=== PATIENT | male | born 1975 | race Caucasian/White ===

== ENCOUNTER 2016-06-27 09:39 | Day surgery (SDC) | payer BC, OTHER ==
[2016-06-21 10:27] LABS: HEMATOCRIT 47.2 % (37.9-51.0); HEMOGLOBIN 16.4 g/dL (13.5-17.0); MEAN CORPUSCULAR HEMOGLOBIN 29.2 pg (27.0-33.4); MEAN CORPUSCULAR HGB CONC 34.8 g/dL (32.0-36.0); MEAN CORPUSCULAR VOLUME 84 fl (80-97); RED BLOOD COUNT 5.63 10^6/uL (4.35-5.55); RED CELL DISTRIBUTION WIDTH 13.7 % (11.5-14.0); WHITE BLOOD COUNT 6.9 10^3/uL (4.0-10.5)
[2016-06-21 10:53] LABS: ANION GAP 14 (5-19); BLOOD UREA NITROGEN 22 mg/dL (7-20); CALCIUM 9.6 mg/dL (8.4-10.2); CARBON DIOXIDE 25 mmol/L (22-30); CHLORIDE 101 mmol/L (98-107); CREATININE RESULT 1.34 mg/dL (0.52-1.25); GLUCOSE 86 mg/dL (75-110); POTASSIUM 4.9 mmol/L (3.6-5.0); SODIUM 139.5 mmol/L (137-145)
--- NOTE | 2016-06-21 12:45 | EKG REPORT ---
SEVERITY:- NORMAL ECG - SINUS RHYTHM : Confirmed by: Manuel Mancini MD 21-Jun-2016 12:44:58
[~2016-06-27 09:39] MED LIST: BUPIVACAINE HCL 0.25 % INJ/PF (2.5 MG/1 ML) 30 ML VIAL ONE; CIPROFLOXACIN 400 MG/D5W RTU 400 MG/200 ML RTUPB IV PRN; LIDOCAINE 0.5% INJ-PF (5 MG/ML) 50 ML SDV SUBCUT PRN; RINGERS SOLUTION,LACTATED 1,000 ML IV SCH; RINGERS SOLUTION,LACTATED 150 ML IV PRN
[2016-06-27] MEDS ORDERED: HYDROMORPHONE HCL INJ/PF 2 MG/ML AMPULE ONE (10:31)
[2016-06-27] MEDS ORDERED: FENTANYL CITRATE INJ/PF 250 MCG/5 ML AMPULE ONE (10:31)
[2016-06-27] MEDS ORDERED: ACETAMINOPHEN 100 ML IV ONE (10:32)
[2016-06-27] MEDS ORDERED: PROPOFOL INJ 200 MG/20 ML VIAL IV ONE (10:32)
[2016-06-27] MEDS ORDERED: MIDAZOLAM 2 MG/2 ML INJ ONE (10:32)
[2016-06-27] MEDS ORDERED: DIPHENHYDRAMINE HCL 50 MG/ML VIAL IV PRN (12:11)
[2016-06-27] MEDS ORDERED: MORPHINE SULFATE 10 MG/ML INJ IV PRN (12:11)
[2016-06-27] MEDS ORDERED: OXYCODONE-ACETAMINOPHEN 5-325 MG TABLET PO PRN ×2 (12:11)
[2016-06-27] MEDS ORDERED: MEPERIDINE HCL/PF INJ 25 MG/1 ML DISP.SYRIN IV PRN (12:11)
[2016-06-27] MEDS ORDERED: PROMETHAZINE HCL INJ 25 MG/1 ML VIAL IV PRN ×2 (12:11)
[2016-06-27] MEDS ORDERED: FENTANYL CITRATE INJ/PF 100 MCG/2 ML AMPUL IV PRN ×3 (12:11)
[2016-06-27] MEDS ORDERED: SUCCINYLCHOLINE CHLORIDE INJ 200 MG/10 ML VIAL ONE (13:16)
[2016-06-27] MEDS ORDERED: ONDANSETRON HCL INJ/PF 4 MG/2 ML SDV ONE (13:16)
[2016-06-27] MEDS ORDERED: ROCURONIUM BROMIDE INJ 50 MG/5 ML VIAL IV ONE (13:16)
[2016-06-27] MEDS ORDERED: GLYCOPYRROLATE INJ 0.4 MG/2 ML VIAL ONE (13:16)
[2016-06-27] MEDS ORDERED: NEOSTIGMINE METHYLSULFATE 10 MG/10 ML VIAL ONE (13:16)
[2016-06-27] MEDS ORDERED: DEXAMETHASONE SOD PHOSPHATE INJ 4 MG/1 ML VIAL ONE (13:16)
--- NOTE | 2016-06-27 13:30 | PDOC DISCHARGE SUMMARY ---
Discharge Summary (SDC) - Discharge Final Diagnosis: abdominal wall hernia with intra-abdominal adhesions Date of Surgery: 06/27/16 Discharge Date: 06/27/16 Condition: Stable Treatment or Instructions: [facility] [address] [place] [id number] Discharge Instructions: Laparoscopic Surgery 1. General Information: a. DO NOT DRIVE a car or operate dangerous machinery for 3-4 days or while taking narcotic pain pills. b. DO NOT consume alcohol, tranquilizers, sleeping medications or any non- prescribed medications for 24 hours unless approved by your doctor or as long as taking narcotic prescription medications. c. DO NOT make important decisions or sign any important papers for the first 24 hours after surgery. d. When discharged home the same day of surgery have a responsible person with you for the first night. 2. Activity Restrictions: 6-8weeks. a. NO heavy lifting, straining abdominal muscles, bending over a lot, yard work, house work, or sports for [address] for 3-4 days or while taking _Percocet__ . c. It is fine to go for walks, up and down steps, ride in a car. d. Elevate your head when sleeping/resting. 3. Treatment: a. You may shower 24 hours after surgery, no baths or swimming for 2 weeks. Remove band-aids or dressings before shower but leave paper strips (steri-strips ) on the skin to fall off on their own. If still on at postoperative visit they will be removed then. b. Drainage of fluid or blood is not unusual from an incision. If occurs, you can clean with peroxide and cotton ball daily and cover with dry gauze until the wound seals. c. If a lot of bleeding occurs, you can hold pressure with a gauze or cloth over the site for 10 minutes and it will usually stop. If bleeding continues you will need to call for possible evaluation in office or emergency room. 4. Medications: a. __Percocet_ may be taken for pain as needed, one or two tablets every 4-6 hours. Stop the narcotic when able since you cannot take it and drive, and they cause constipation. You may switch to plain Tylenol, Advil or Aleve as you transition from the narcotic. Many adults find good pain relief with Advil 600- 800 mg three times a day with meals. This can cause indigestion, ulcers, and kidney problems with long-term use. b. You should resume all normal medications unless a change is specified by your doctors. c 5. Diet: Begin with clear liquids and may progress to your normal diet if not nauseated. No high fat, high protein foods the day of surgery. 6. The following may occur after laparoscopic surgery: a. Shoulder or upper back ache from retained gas that should resolve in 1-2 days b. Soreness and bruising at incision sites will resolve with time. c. Scrotal swelling (labia in women) and bruising is often seen after hernia surgery. d. Sore throat e. Fatigue may last days to weeks. f. Difficulty urinating may occur and may need to come into emergency room for urinary catheter placement. 7. Notify Physician If: a. Worsening or pain not improved with pain medication b. Persistent nausea and vomiting c. Fever above 101 d. Persistent bleeding or swelling at operative site e. Unable to urinate and uncomfortable bladder 6-8 hours after surgery 8..Follow Up Care: a. Schedule a follow up appointment with your doctor for 2 weeks. In the event of any postoperative problems or questions or you may call the office during business hours or the On-Call physician evenings and weekends at [facility]. [facility] I understand the instructions for my postoperative care as described above and a copy has been given to me. Patient/Significant Other Witness Date Prescriptions: Oxycodone HCl/Acetaminophen [Percocet 5-325 mg Tablet] 1 tab PO ASDIR PRN #25 tab PRN Reason: Discharge Activity: No Driving, No Lifting Over 10 Pounds Report the Following to Your Physician Immediately: Nausea, Vomiting, Increase in Pain, Fever over 101 Degrees, Redness, Swelling, Warmth, Drainage-Foul Smelling
[2016-06-27] MEDS ORDERED: ONDANSETRON HCL INJ/PF 4 MG/2 ML SDV IV PRN (13:31)
[2016-06-27] MEDS: FENTANYL CITRATE INJ/PF 100 MCG/2 ML AMPUL ONE ×2 (13:32→13:37)
--- NOTE | 2016-06-27 13:34 | Operative Report ---
Operative Report DATE OF SURGERY: 06/27/16 PREOPERATIVE DIAGNOSIS: Multiple ventral wall hernias POSTOPERATIVE DIAGNOSIS: Same with extensive intra-abdominal adhesions OPERATION: 1. Laparoscopic adhesiolysis. 2. Laparoscopic ventral herniorrhaphy with 20 x 15 Parietex mesh SURGEON: JENY DILLARD CCO: VISH DIAZ ANESTHESIA: GA TISSUE REMOVED OR ALTERED: Portions of intra-abdominal fat disposed of COMPLICATIONS: None ESTIMATED BLOOD LOSS: minimal INTRAOPERATIVE FINDINGS: See below PROCEDURE: The patient was seen in the preoperative holding area was then taken to the operating room and general anesthesia was induced. The abdomen was exposed, prepped and draped sterile fashion. Vertical plan and surgical timeout were conducted. The abdomen was significant for long midline incision above and below the umbilicus with multiple asses consistent with hernias. We approach the abdomen through a left upper quadrant with a stab wound. The Veress needle was inserted the peritoneal cavity, pneumoperitoneum was established, Veress needle removed. A 5 mm port inserted peritoneal cavity, and a 5 mm flexible scope was inserted. Under direct visualization 2 additional ports placed one left lower quadrant one in the right mid quadrant. Findings are significant for extensive adhesions between the greater omentum and the anterior abdominal wall. Adhesio lysis was performed using a combination of blunt, electrocautery, and LigaSure device. There was no evidence of small bowel involved in the adhesions. Continue using a lysis was complete, we debulked the incarcerated portions of omentum stuck in the multiple abdominal wall hernias area these hernias consisted of 3 that we could confirm area the cephalad-most was partially 2 cm in diameter, the mid position midline hernia was approximately 2 cm in diameter, and the third hernia at the umbilicus was approximately 4 cm in diameter. There was approximately a 6 cm in between the first and second sixth interspace between the second and third hernias. We proceeded to perform primary herniorrhaphy using 0 PDS suture with multiple [id number] used to close the large umbilical defect and single [id number] sutures to close the superior and mid position hernias. Knots were secured decompressed and the abdomen of pneumoperitoneum partially. Approximation of the fascia was felt to be very good. We then brought onto the field a non- Parietex mesh by Scicasts,, approximately 20 x 15 cm diameter. The mesh was fixed with's stitches at the 12 36 and 9:00 positions with 0 PDS suture. The mesh was oriented rolled moistened and brought to the intra-abdominal wall uneventfully through one of the port site incisions. We then unfurled the mesh, and using the specimen table suture passer, brought each other of the 0 PDS stitches in the 4 positions up through the intra- abdominal wall all direct visualization. Mesh was secured to the anterior abdominal wall by securing the knots. Very satisfied with the opposition of the mesh to the anterior abdominal wall. We then came around in a circumferential fashion with 2 concentric rows of tacks. Conclusion photos were taken. There is no evidence of bleeding. We checked the viscera was no evidence of injury to the bowel. [place] the operation was complete. Sponge and counts correct. All ports removed under direct visualization pneumoperitoneum evacuated, and wounds closed with 3- 0 Vicryl benzoin Steri-Strips; additional marcane was injected into the port site skin and subcutaneous tissue. The physician server assistant, Ms. Diaz, provided assistance during this case by: Assisting and port insertion, retracting tissue, instillation of local anesthesia and closure of skin incisions.
[2016-06-27] MEDS: HYDROMORPHONE HCL INJ/PF 2 MG/ML AMPULE ONE ×5 (14:00→14:35)
[2016-06-27] MEDS ORDERED: OXYCODONE-ACETAMINOPHEN 5-325 MG TABLET PO ONE (14:15)
[2016-06-27 17:01] VITALS: BP 112/78
== END 2016-06-27 16:10 | disposition home or self-care (01) ==
LOC: OROUT 09:39
PROVIDERS: ATTEND Surgery
PROC: 0DNW4ZZ Release Peritoneum, Percutaneous Endoscopic Approach (ICD-10-PCS; 2016-06-27)
PROC: 0WUF4JZ Supplement Abdominal Wall with Synthetic Substitute, Percutaneous Endoscopic Approach (ICD-10-PCS; principal; 2016-06-27 11:30)
DX: K43.9 Ventral hernia without obstruction or gangrene (principal); K66.0 Peritoneal adhesions (postprocedural) (postinfection); R01.1 Cardiac murmur, unspecified; Z88.0 Allergy status to penicillin; Z79.1 Long term (current) use of non-steroidal anti-inflammatories (NSAID)
CPT/HCPCS: 93005; 36415; 85027; 80048; 71020; 93010; 49652; 49329; C1781; J2250; J3490; J1100; J3010 ×2; J1170; J0330; J2405; J2704; J0744; J0131; 752